=== PATIENT | male | born 1995 | race Caucasian/White ===

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

== ENCOUNTER → 2018-03-19 | Outpatient (CLI) | payer BC | LOC: M WUC 17:11 | DX: S90.32XA Contusion of left foot, initial encounter (principal) | CPT/HCPCS: 73630 ==

== ENCOUNTER → 2021-03-02 | Outpatient (CLI) | payer OTHER | LOC: M OUTALCOH 08:35 | PROVIDERS: ATTEND Psychiatry & Neurology Psychiatry | DX: Z02.9 Encounter for administrative examinations, unspecified (principal) ==

== ENCOUNTER 2021-11-18 03:35 | Inpatient (IN) | payer OTHER ==
[~2021-11-18] VITALS: Ht 175.3 cm; Wt 68.4 kg
[2021-11-18 04:37] LABS: HEMATOCRIT 48.9 % (42.0-52.0); HEMOGLOBIN 17.5 g/dl (13.5-17.5); MEAN CORPUSCULAR HEMOGLOBIN 30.8 pg (27.0-33.0); MEAN CORPUSCULAR HGB CONC 35.8 g/dl (32.0-36.5); MEAN CORPUSCULAR VOLUME 85.9 fl (80.0-96.0); PLATELET COUNT, AUTOMATED 270 10^3/uL (150-450); RED BLOOD COUNT 5.69 10^6/uL (4.30-6.10); WHITE BLOOD COUNT 8.5 10^3/uL (4.0-10.0)
[2021-11-18 04:58] LABS: RSV AMPLIFICATION NEGATIVE (NEGATIVE)
[2021-11-18 05:06] LABS: ACETAMINOPHEN LEVEL < 2.0 UG/ML (10.0-30.0); ALBUMIN 4.5 GM/DL (3.2-5.2); ALT/SGPT 33 U/L (12-78); AMPHETAMINES LEVEL URINE NEGATIVE (NEGATIVE); BARBITURATES URINE NEGATIVE (NEGATIVE); BENZODIAZEPINES URINE NEGATIVE (NEGATIVE); BILIRUBIN,DIRECT < 0.1 MG/DL (0.0-0.2); BILIRUBIN,TOTAL 0.4 MG/DL (0.2-1.0); BLOOD UREA NITROGEN 8 MG/DL (7-18); CALCIUM LEVEL 9.6 MG/DL (8.5-10.1); CANNABINOIDS URINE NEGATIVE (NEGATIVE); CARBON DIOXIDE LEVEL 27 MEQ/L (21-32); CHLORIDE LEVEL 112 MEQ/L (98-107); COCAINE METABOLITE URINE POSITIVE (NEGATIVE); CREATININE FOR GFR 0.86 MG/DL (0.70-1.30); ETHYL ALCOHOL (ETHANOL) 0.204 % (0.000-0.010); GLOMERULAR FILTRATION RATE > 60.0 (>60); GLUCOSE, FASTING 88 MG/DL (70-100); METHADONE URINE NEGATIVE (NEGATIVE); OPIATES URINE NEGATIVE (NEGATIVE); PHENCYCLIDINE URINE NEGATIVE (NEGATIVE); POTASSIUM SERUM 3.9 MEQ/L (3.5-5.1); SALICYLATE LEVEL < 1.7 MG/DL (5.0-30.0); SODIUM LEVEL 145 MEQ/L (136-145)
[2021-11-18] MEDS ORDERED: FOLIC ACID 1 MG TAB PO SCH (09:00)
[2021-11-18] MEDS ORDERED: MULTIVITAMINS/MINERALS THERAP 1 TAB PO SCH (09:00)
[2021-11-18] MEDS ORDERED: diphenhydrAMINE 25MG CAP PO PRN (14:30)
[2021-11-18] MEDS ORDERED: OLANZapine ORAL DISINTEGRATING TAB 5MG PO PRN (14:30)
[2021-11-18] MEDS ORDERED: MAALOX 30 ML SUSP *UDC PO PRN (14:30)
[2021-11-18] MEDS ORDERED: ACETAMINOPHEN TAB 650MG DOSE (2X325MG) PO PRN (14:30)
[2021-11-18] MEDS ORDERED: MOM 30ML SUSPENSION UDC PO PRN (14:30)
[2021-11-18] MEDS ORDERED: LORazepam 2 MG TAB PO PRN (14:30)
[2021-11-18] MEDS ORDERED: HOME MED LIST COMPLETE! XX SCH (15:05)
[2021-11-18 20:10] VITALS: BP 139/88
[2021-11-18] MEDS ORDERED: THIAMINE 100 MG TAB PO SCH (21:00)
[2021-11-18] MEDS: traZODone 50 MG TAB PO PRN (22:56)
[2021-11-18] MEDS: NICOTINE 21MG/24HR 1 EA TRANSDERMAL TD SCH (22:59)
[2021-11-19 06:00] VITALS: BP 124/63
[2021-11-19] MEDS: NICOTINE 21MG/24HR 1 EA TRANSDERMAL TD SCH (09:00)
[2021-11-19] MEDS: NALTREXONE 50 MG TAB PO SCH (12:31)
[2021-11-19] MEDS: SERTRALINE HCL 50 MG TAB PO SCH (12:31)
[2021-11-19] MEDS: THIAMINE 100 MG TAB PO SCH ×2 (13:05→22:26)
[2021-11-19 14:00] VITALS: BP 124/71
[2021-11-19 18:15] VITALS: BP 130/63
[2021-11-19 22:00] VITALS: BP 134/79
[2021-11-19] MEDS: traZODone 50 MG TAB PO PRN (22:26)
[2021-11-19] MEDS: FOLIC ACID 1 MG TAB PO SCH (22:37)
[2021-11-19] MEDS: MULTIVITAMINS/MINERALS THERAP 1 TAB PO SCH (22:38)
[2021-11-20 06:56] VITALS: BP 126/69
[2021-11-20 07:01] VITALS: BP 126/69
[2021-11-20] MEDS: MULTIVITAMINS/MINERALS THERAP 1 TAB PO SCH (09:00)
[2021-11-20] MEDS: SERTRALINE HCL 50 MG TAB PO SCH (09:00)
[2021-11-20] MEDS: THIAMINE 100 MG TAB PO SCH ×2 (09:00→20:36)
[2021-11-20] MEDS: NALTREXONE 50 MG TAB PO SCH (09:00)
[2021-11-20] MEDS: FOLIC ACID 1 MG TAB PO SCH (09:00)
[2021-11-20] MEDS: NICOTINE 21MG/24HR 1 EA TRANSDERMAL TD SCH (09:00)
[2021-11-20] MEDS: NICOTINE POLACRILEX 2 MG GUM PO PRN (13:34)
[2021-11-20 16:05] VITALS: BP 142/74
[2021-11-20] MEDS: traZODone 50 MG TAB PO PRN (20:36)
[2021-11-21 06:09] VITALS: BP 118/58
[2021-11-21] MEDS: THIAMINE 100 MG TAB PO SCH ×2 (09:00→21:21)
[2021-11-21] MEDS: MULTIVITAMINS/MINERALS THERAP 1 TAB PO SCH (09:00)
[2021-11-21] MEDS: NICOTINE 21MG/24HR 1 EA TRANSDERMAL TD SCH (09:00)
[2021-11-21] MEDS: FOLIC ACID 1 MG TAB PO SCH (09:00)
[2021-11-21] MEDS: NALTREXONE 50 MG TAB PO SCH (10:27)
[2021-11-21] MEDS: SERTRALINE HCL 50 MG TAB PO SCH (10:28)
[2021-11-21 13:45] VITALS: BP 127/73
[2021-11-21 15:45] VITALS: BP 127/73
[2021-11-21] MEDS: traZODone 50 MG TAB PO PRN (21:21)
[2021-11-22 06:23] VITALS: BP 109/58
[2021-11-22] MEDS: MULTIVITAMINS/MINERALS THERAP 1 TAB PO SCH (08:58)
[2021-11-22] MEDS: SERTRALINE HCL 50 MG TAB PO SCH (08:58)
[2021-11-22] MEDS: NALTREXONE 50 MG TAB PO SCH (08:58)
[2021-11-22] MEDS: FOLIC ACID 1 MG TAB PO SCH (08:58)
[2021-11-22] MEDS: NICOTINE 21MG/24HR 1 EA TRANSDERMAL TD SCH (08:59)
[2021-11-22] MEDS: NICOTINE POLACRILEX 2 MG GUM PO PRN (17:23)
[2021-11-22 19:23] VITALS: BP_SYST 137; BP_SYST 141; BP_DIAS 79; BP_DIAS 81
[2021-11-22] MEDS: traZODone 50 MG TAB PO PRN (20:30)
[2021-11-23 07:14] VITALS: BP 122/72
[2021-11-23] MEDS: SERTRALINE HCL 50 MG TAB PO SCH (08:19)
[2021-11-23] MEDS: NALTREXONE 50 MG TAB PO SCH (08:19)
[2021-11-23] MEDS: FOLIC ACID 1 MG TAB PO SCH (08:19)
[2021-11-23] MEDS: MULTIVITAMINS/MINERALS THERAP 1 TAB PO SCH (08:19)
[2021-11-23] MEDS: NICOTINE 21MG/24HR 1 EA TRANSDERMAL TD SCH (08:20)
[2021-11-23] MEDS: NICOTINE POLACRILEX 2 MG GUM PO PRN (11:21)
[2021-11-23] MEDS ORDERED: NICO21PAT TD (12:03)
[2021-11-23] MEDS ORDERED: NICO2GUM PO (12:03)
[2021-11-23] MEDS ORDERED: NALT50TA4 PO (12:03)
[2021-11-23] MEDS ORDERED: TRAZ-252 PO (12:03)
[2021-11-23] MEDS ORDERED: SERT50TA29 PO (12:03)
== END 2021-11-23 12:32 | disposition home or self-care (01) | DRG 751 ==
LOC: M ED 03:35 → M ED INP 14:28 → M PSY 20:10
PROVIDERS: ADMIT Student in an Organized Health Care Education/Training Program; ATTEND Student in an Organized Health Care Education/Training Program
DX: F33.2 Major depressive disorder, recurrent severe without psychotic features (principal); R45.851 Suicidal ideations; F14.90 Cocaine use, unspecified, uncomplicated; F10.10 Alcohol abuse, uncomplicated; F17.200 Nicotine dependence, unspecified, uncomplicated

== ENCOUNTER → 2025-04-01 | Outpatient (CLI) | payer SELFPAY ==
[~2025-04-01] MED LIST changes: -LIDOCAINE 2% MDV 20 ML VIAL As Ordered ONE; +NALT50TA4 PO; +NICO21PAT TD; +NICO2GUM PO; -NS 1,000 ML IV SCH; -PROPOFOL 200 MG/20 ML VIAL As Ordered ONE; -PROPOFOL 500 MG/50 ML VIAL As Ordered ONE; +SERT50TA29 PO; +TRAZ-252 PO
== END ==
LOC: M WUC 09:09
PROVIDERS: ATTEND Physician Assistant
DX: M25.572 Pain in left ankle and joints of left foot (principal)